=== PATIENT | male | born 1975 | race Caucasian/White ===

== ENCOUNTER 2016-09-23 21:15 | Emergency (ER) ==
[2016-09-23] MEDS ORDERED: SODIUM CHLORIDE 1,000 ML IV STA (21:17)
[2016-09-23] MEDS ORDERED: TETANUS DIPHTHERIA TOXOIDS IM ONE (21:22)
[2016-09-23 21:25] VITALS: BP 146/83; TEMP 100; BMI 21.7
[2016-09-23 21:27] LABS: BASOPHILS % (AUTO) 0.6 % (0.0-3.0); EOSINOPHILS # (AUTO) 0.1 K/ul (0.0-0.7); EOSINOPHILS % (AUTO) 1.7 % (0.0-7.0); HEMATOCRIT 37.3 % (42.0-52.0); HEMOGLOBIN 13.1 g/dl (14.0-18.0); IMMATURE GRANULOCYTE % (AUTO) 0.3 % (0.0-5.0); LYMPHOCYTES # (AUTO) 2.1 K/uL (0.60-3.4); LYMPHOCYTES % (AUTO) 33.8 (10.0-50.0); MEAN CORPUSCULAR HEMOGLOBIN 30.4 pg (27.0-31.0); MEAN CORPUSCULAR HGB CONC 35.1 (31.8-35.4); MEAN CORPUSCULAR VOLUME 86.5 fl (80.0-94.0); MONOCYTES # (AUTO) 0.2 K/uL (0.4-2.0); MONOCYTES % (AUTO) 3.8 (0-10); NEUTROPHILS # (AUTO) 3.8 K/ul (2.0-6.9); NEUTROPHILS % (AUTO) 59.8; PLATELET COUNT 158 10^3/uL (140-440); RED BLOOD COUNT 4.31 10^6/ul (4.70-6.10)
[2016-09-23 21:37] LABS: ADD URINE MICROSCOPIC NO; BILIRUBIN,URINE Negative (NEGATIVE); KETONES,URINE Negative (NEGATIVE); LEUKOCYTE ESTERASE ,URINE Negative (NEGATIVE); NITRITE,URINE Negative (NEGATIVE); PH,URINE 5.5 (5-9); PROTEIN,URINE Negative (NEGATIVE); URINE, BLOOD Negative (NEGATIVE)
--- NOTE | 2016-09-23 21:40 | ED.PDOC ---
General ED Provider: Dr. RYAN TAYLOR-ER Chief Complaint: Bite Stated Complaint: i was bitten by a copperhead about a hr ago Time Seen by Physician: 21:20 Mode of Arrival: Walk-In Information Source: Patient Exam Limitations: No limitations Nursing and Triage Documentation Reviewed and Agree: Yes Skin Complaint Exam - Laceration/Abrasion/Hand Complaint/Exam Location of Injury: Right, Digit #1 Mechanism of Injury: Puncture Onset/Duration: one hour Symptoms Are: Still present Initial Severity: Mild Current Severity: Moderate Aggravating: Movement Alleviating: None Associated Signs and Symptoms: Reports: Numbness, Tingling. Denies: Fever, Chills, Erythema Related History: Reports: Right hand dominant Differential Diagnoses: Bite Injury Review of Systems - Review Of Systems Constitutional: Reports: No symptoms Eyes: Reports: No symptoms Ears, Nose, Mouth, Throat: Reports: No symptoms Respiratory: Reports: No symptoms Cardiac: Reports: No symptoms GI: Reports: No symptoms : Reports: No symptoms Musculoskeletal: Reports: Muscle pain Skin: Reports: No symptoms Neurological: Reports: No symptoms Endocrine: Reports: No symptoms Hematologic/Lymphatic: Reports: No symptoms All Other Systems: Reviewed and Negative Past Medical History - Past Medical History Previously Healthy: Yes Endocrine: Reports: None Cardiovascular: Reports: None Respiratory: Reports: None Hematological: Reports: None Gastrointestinal: Reports: None Genitourinary: Reports: None Neuro/Psych: Reports: None Musculoskeletal: Reports: None Cancer: Reports: None - Surgical History General Surgical History: Reports: Unknown - Family History Family History: Reports: Unknown - Social History Smoking Status: Never smoker Hx Substance Use: Yes (marijuana) Alcohol Screening: Heavy Lives: With family - Immunizations Tetanus Shot up to Date: No Physical Exam - Physical Exam Appearance: Well-appearing, No pain distress, Well-nourished Pain Distress: Moderate Eyes: MILADYS, EOMI, Conjunctiva clear ENT: Ears normal, Nose normal, Oropharynx normal Neck: Supple Respiratory: Airway patent, Breath sounds clear, Breath sounds equal, Respirations nonlabored Cardiovascular: RRR, Pulses normal, No rub, No murmur GI/: Soft, Nontender, No masses, Bowel sounds normal, No Organomegaly Musculoskeletal: Normal strength, ROM intact, No edema, No calf tenderness Skin: Warm, Dry, Normal color (noted swelling of the right index finger with bruising to the hand) Neurological: Sensation intact, Motor intact, Reflexes intact, Cranial nerves intact, Alert, Oriented Psychiatric: Affect appropriate Re-Evaluation - Re-Evaluation Time of Re-Evaluation: 21:46 Status: Unchanged Vital Signs Stable: Yes Pain Level: 3 Appearance: NAD Lungs: Clear Skin: Warm and Dry Neuro: Alert and Oriented X3 CV: RRR Physician Notification - Case Discussed Physician Notified: [facility]--suggested tertiary center Physician Notified: dr sneha valadez [facility] [place] [facility] accepted Time of Notification: 21:43 Critical Care Note - Critical Care Note Total Time (mins): 20 Course - Course Hematology/Chemistry: 09/23/16 21:25 09/23/16 21:25 Orders, Labs, Meds: Lab Review 09/23/16 09/23/16 21:25 21:35 WBC 6.30 RBC 4.31 L Hgb 13.1 L Hct 37.3 L MCV 86.5 MCH 30.4 MCHC 35.1 RDW Coeff of Savita 11.8 Plt Count 158 Immature Gran % (Auto) 0.3 Neut % (Auto) 59.8 Lymph % (Auto) 33.8 Oliver % (Auto) 3.8 Eos % (Auto) 1.7 Baso % (Auto) 0.6 Immature Gran # (Auto) 0.0 Neut # 3.8 Lymph # 2.1 Oliver # 0.2 L Eos # 0.1 Baso # 0.0 PT 11.4 H INR 1.11 APTT 26.3 Sodium 136 Potassium 3.3 L Chloride 98 Carbon Dioxide 19 L Anion Gap 22.3 BUN 11 Creatinine 0.82 Estimated GFR (MDRD) 105.00 BUN/Creatinine Ratio 13.41 Glucose 92 Calcium 9.2 Total Bilirubin 0.57 AST 36 ALT 49 Alkaline Phosphatase 43 L Total Protein 8.1 Albumin 4.5 Globulin 3.6 Albumin/Globulin Ratio 1.25 Urine Color Yellow Urine Clarity Clear Urine pH 5.5 Ur Specific [place] <=1.005 Urine Protein Negative Urine Glucose (UA) Negative Urine Ketones Negative Urine Blood Negative Urine Nitrite Negative Urine Bilirubin Negative Urine Urobilinogen 0.2 Ur Leukocyte Esterase Negative Orders Category Date Time Status EKG-(ED ONLY) Stat CARDIO 09/23/16 21:18 Ordered TRANSFER TO OUTSIDE FACILITY .TO [facility] 09/23/16 21:44 Active [facility] ([place], [place] WRITE TRANSFER/SBAR NOTE ONCE CARE 09/23/16 21:44 Completed DISCHARGE ASSESSMENT ONCE DISCHARGE 09/23/16 21:44 Completed WRITE DISCHARGE NOTE ONCE DISCHARGE 09/23/16 21:44 Completed ED IV/MEDIPORT/POWERPORT .ONCE EMERGENCY 09/23/16 21:17 Active CBC W/ AUTO DIFF Stat LAB 09/23/16 21:25 Completed COMPREHENSIVE METABOLIC PANEL Stat LAB 09/23/16 21:25 Completed PT WITH INR Stat LAB 09/23/16 21:25 Completed PTT [PARTIAL THROMBOPLASTIN TIME] Stat LAB 09/23/16 21:25 Completed UA [URINALYSIS C & S IF INDICATED] Stat LAB 09/23/16 21:35 Completed 0.9 % Sodium Chloride [Saline Flush] MEDS 09/23/16 21:17 Ordered 1 syr IVF PRN PRN Morphine Sulfate [Morphine 2 mg/ml Syringe] MEDS 09/23/16 21:50 Stat 2 mg IVP ONCE STA Ondansetron HCl/Pf [Zofran 4 mg/2 ml] MEDS 09/23/16 21:50 Stat 4 mg IVP ONCE STA Sodium Chloride 0.9% [Sodium Chloride] 1,000 ml MEDS 09/23/16 21:17 Active IV 100 mls/hr Tetanus, Diphtheria Tox,Adult [Tetanus Diphtheria MEDS 09/23/16 21:22 Discontinued Toxoids] 0.5 ml IM .ONCE ONE Medications Generic Name Dose Route Start Last Admin Trade Name Freq PRN Reason Stop Dose Admin Sodium Chloride 1,000 mls @ 100 mls/hr 09/23/16 21:17 09/23/16 21:26 Sodium Chloride IV 09/24/16 07:16 100 mls/hr .Q10H STA Administration Sodium Chloride 1 syr 09/23/16 21:17 09/23/16 21:26 Saline Flush IVF 1 syr PRN PRN Administration To flush IV Discontinued Medications Generic Name Dose Route Start Last Admin Trade Name Freq PRN Reason Stop Dose Admin Tetanus/Diphtheria Toxoids 0.5 ml 09/23/16 21:22 09/23/16 21:31 Tetanus Diphtheria Toxoids IM 09/23/16 21:23 0.5 ml .ONCE ONE Administration Vital Signs: Temp Pulse Resp BP Pulse Ox 09/23/16 21:16 100 F H 78 20 146/83 H 99 Departure - Departure Time of Disposition: 21:43 Disposition: TSF SHORT-TRM HOSP Discharge Problem: Bite, snake, venomous Instructions: Snake Bite (ED) Condition: Good Pt referred to PMD for follow-up: Yes Allergies/Adverse Reactions: Allergies No Known Allergies Allergy (Unverified 09/23/16 21:16) Home Medications: Ambulatory Orders 1 [No Reported Medications] 09/23/16 Transfer Form Completed: Yes Disposition Discussed With: Patient, Family
[2016-09-23 21:41] LABS: PARTIAL THROMBOPLASTIN TIME 26.3 SEC (23.9-40.0); PROTHROMBIN TIME 11.4 SEC (9.3-11.0)
[2016-09-23 21:46] LABS: ALBUMIN 4.5 g/dL (3.4-5.0); ALBUMIN/GLOBULIN RATIO 1.25; ANION GAP 22.3; BILIRUBIN,TOTAL 0.57 mg/dL (0.00-1.20); BUN/CREATININE RATIO 13.41; CALCIUM 9.2 mg/dL (8.2-10.2); CREATININE 0.82 mg/dL (0.60-1.10); POTASSIUM 3.3 mmol/L (3.5-5.1); TOTAL PROTEIN 8.1 g/dL (6.4-8.2)
[2016-09-23] MEDS ORDERED: ZOFRAN 4 MG/2 ML IVP STA (21:50)
[2016-09-23] MEDS ORDERED: MORPHINE 2 MG/ML SYRINGE IVP STA (21:50)
[2016-09-23] MEDS ORDERED: MORPHINE 2 MG/ML SYRINGE ONE (21:51)
[2016-09-23] MEDS ORDERED: ZOFRAN 4 MG/2 ML ONE (21:51)
== END 2016-09-23 22:30 | disposition short-term general hospital (02) ==
LOC: ED 21:15
DX: T63.061A Toxic effect of venom of other North and South American snake, accidental (unintentional), initial encounter (principal); R20.0 Anesthesia of skin; R60.0 Localized edema; S60.221A Contusion of right hand, initial encounter
CPT/HCPCS: 36415; 80053; 81001; 85025; 85610; 85730; 90471; 93005; 93010; 96360; 96361; 96374; 96375; 99285